=== PATIENT | male | born 1980 | race Caucasian/White ===

== ENCOUNTER 2023-01-18 09:05 | Outpatient (REF) | payer BC, SELFPAY | END 2023-01-18 09:06 | disposition home or self-care (01) | LOC: NFLDREF 09:05 | PROVIDERS: PCP Physician Assistant Medical; Referring Provider Physician Assistant Medical; Visit Provider Physician Assistant Medical | DX: Z13.220 Encounter for screening for lipoid disorders (principal); Z13.228 Encounter for screening for other metabolic disorders; Z13.29 Encounter for screening for other suspected endocrine disorder | CPT/HCPCS: 80053; 80061; 84443 ==

== ENCOUNTER 2024-02-07 09:54 | Outpatient (CLI) | payer BC, SELFPAY | END 2024-02-07 09:55 | disposition home or self-care (01) | LOC: FRMREF 09:55 | PROVIDERS: PCP Physician Assistant Medical; Visit Provider Nurse Practitioner Family | DX: Z13.220 Encounter for screening for lipoid disorders (principal) | CPT/HCPCS: 80061 ==